=== PATIENT | male | born 1965 | race African-American/Black ===

== ENCOUNTER 2020-03-28 09:54 | Emergency (ER) | payer OTHER ==
[~2020-03-28] VITALS: Ht 182.9 cm; Wt 90.7 kg
[2020-03-28] MEDS ORDERED: AMOX1TAB5 PO (12:08)
== END 2020-03-28 12:52 | disposition home or self-care (01) ==
LOC: ER 09:54
DX: S05.41XA Penetrating wound of orbit with or without foreign body, right eye, initial encounter (principal); V19.88XA Pedal cyclist (driver) (passenger) injured in other specified transport accidents, initial encounter; Y93.55 Activity, bike riding; Y92.89 Other specified places as the place of occurrence of the external cause; Y99.8 Other external cause status